=== PATIENT | female | born 2000 | race Hispanic/Latino ===

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

== ENCOUNTER 2018-07-21 18:23 | Emergency (ER) | payer OTHER, SELFPAY ==
--- OUTSIDE RECORDS SUMMARY | 2018-07-21 18:24 | XMS REPORT ---
:2000 [facility] Address [address] [place] [address] Dr. Amin. [address] [place] [id number] Care Team Providers Name Role Phone Unavailable Unavailable Unavailable Problems This patient has no known problems. Allergies, Adverse Reactions, Alerts This patient has no known allergies or adverse reactions. Medications This patient has no known medications.
[2018-07-21 19:26] LABS: Absolute Lymphocytes (CBC) 2.6 K/uL (0.7-4.9); Absolute Monocytes 0.6 K/uL (0.1-1.3); Absolute Neutrophil 6.7 K/uL (1.8-8.0); Basophils % 0.4 % (0-1.3); Hematocrit 40.7 % (36.0-45.0); Lymphocytes % 25.7 % (15.3-44.8); MPV 9.5 fL (7.6-11.3); Monocytes % 5.7 % (3.3-12.3); RBC Red Blood Cell Count 4.49 M/uL (3.86-4.86)
[2018-07-21 19:47] LABS: Urine Blood 2+ (NEG); Urine Glucose NEGATIVE (NEG); Urine Protein NEGATIVE (NEG); Urine Specific Gravity 1.025 (1.005-1.030)
[2018-07-21 20:22] LABS: BUN Blood Urea Nitrogen 14 mg/dL (7-18); Bicarbonate 26 mmol/L (21-32); Glucose Level 88 mg/dL (74-106); HCG, Quantitative 1341 mIU/mL (1-3); Potassium 3.7 mmol/L (3.5-5.1); Sodium Level 139 mmol/L (136-145)
--- NOTE | 2018-07-21 20:27 | ER ---
Nurse's Notes [facility] Name: Qi Thomas Age: 18 yrs Sex: Female : 2000 Arrival Date: 07/21/2018 Time: 18:26 Bed 23 Private MD: None, None Diagnosis: Threatened Presentation: 07/21 18:28 Presenting complaint: Patient states: "I've been bleeding for 3 or 4 days already and aj1 it comes and goes, sometimes its brown and sometimes its red." Patient reports that she is currently 7 weeks . Transition of care: patient was not received from another setting of care. Onset of symptoms was July 18, 2018. Risk Assessment: Do you want to hurt yourself or someone else? Patient reports no desire to harm self or others. Initial Sepsis Screen: Does the patient meet any 2 criteria? No. Patient's initial sepsis screen is negative. Does the patient have a suspected source of infection? No. Patient's initial sepsis screen is negative. Care prior to arrival: None. 18:28 Method Of Arrival: Ambulatory aj1 18:28 Acuity: ALBERT 3 aj1 Triage Assessment: 18:32 General: Appears in no apparent distress. uncomfortable, Behavior is calm, cooperative, aj1 appropriate for age. Pain: Complains of pain in suprapubic area. Neuro: Level of Consciousness is awake, alert, obeys commands, Oriented to person, place, time, situation. Cardiovascular: Patient's skin is warm and dry. Respiratory: Airway is patent Respiratory effort is even, unlabored, Respiratory pattern is regular, symmetrical. : Reports vaginal bleeding that is brown, light flow, spotty. 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 - Social history:: Smoking status: Patient/guardian denies using tobacco. - Ebola Screening: : Patient denies travel to an Ebola-affected area in the 21 days before illness onset. Screenin:40 Abuse screen: Denies threats or abuse. Denies injuries from another. Nutritional ca1 screening: No deficits noted. Tuberculosis screening: No symptoms or risk factors identified. Fall Risk Assessment: 18:40 General: Appears in no apparent distress. comfortable, Behavior is calm, cooperative, ca1 appropriate for age. Pain: Denies pain. Neuro: Level of Consciousness is awake, alert, obeys commands, Oriented to person, place, time, situation. Cardiovascular: Heart tones S1 S2 present Capillary refill < 3 seconds Patient's skin is warm and dry. Respiratory: Airway is patent Respiratory effort is even, unlabored, Respiratory pattern is regular, symmetrical, Breath sounds are clear bilaterally. GI: Abdomen is round non-distended, Bowel sounds present X 4 quads. Abd is soft and non tender X 4 quads. : Reports vaginal bleeding that is bright red, moderate flow, since 3 to 4 days ago. EENT: No deficits noted. No signs and/or symptoms were reported regarding the EENT system. Derm: Skin is intact, is healthy with good turgor, Skin is pink, warm \\T\\ dry. Musculoskeletal: Circulation, motion, and sensation intact. Capillary refill < 3 seconds, Range of motion: intact in all extremities. 19:00 Reassessment: Dr. Ridley at bedside and did Ultrasound of Abdomen. ca1 19:22 Reassessment: Patient appears in no apparent distress at this time. Patient is alert, ca1 oriented x 3, equal unlabored respirations, skin warm/dry/pink. Pt to Ultrasound. 20:20 Reassessment: Patient appears in no apparent distress at this time. Patient is alert, ca1 oriented x 3, equal unlabored respirations, skin warm/dry/pink. 20:41 Reassessment: Patient appears in no apparent distress at this time. No changes from aj previously documented assessment. Patient and/or family updated on plan of care and expected duration. Pain level reassessed. Patient is alert, oriented x 3, equal unlabored respirations, skin warm/dry/pink. Vital Signs: 18:32 BP 147 / 101; Pulse 86; Resp 18; Temp 97.1; Pulse Ox 96% on R/A; Weight 58.51 kg (R); aj1 Height 5 ft. 0 in. (152.40 cm) (R); Pain 0/10; 19:25 BP 129 / 75; Pulse 84; Resp 17 S; Pulse Ox 99% on R/A; ca1 20:18 BP 121 / 80; Pulse 79; Resp 18; Pulse Ox 100% on R/A; aj 18:32 Body Mass Index 25.19 (58.51 kg, 152.40 cm) aj1 ED Course: 18:26 Patient arrived in ED. mr 18:26 None, None is Private Physician. mr 18:32 Triage completed. aj1 18:32 Arm band placed on Patient placed in an exam room. aj1 18:35 Pancho Ridley MD is Attending Physician. ps1 18:36 Eidth Matias, RN is Primary Nurse. aj 18:40 Patient has correct armband on for positive identification. Placed in gown. Bed in low ca1 position. Call light in reach. Side rails up X 1. Pulse ox on. NIBP on. Warm blanket given. 18:59 Patient taken to ultrasound. elia 19:17 Initial lab(s) drawn, by me, sent to lab. Inserted saline lock: 20 gauge in right lt1 antecubital area, using aseptic technique. 19:50 Transvaginal OB US In Process Unspecified. EDMS 20:41 No provider procedures requiring assistance completed. IV discontinued, intact, aj bleeding controlled, No redness/swelling at site. Pressure dressing applied. Administered Medications: No medications were administered Outcome: 20:26 Discharge ordered by . ps1 20:41 Discharged to home ambulatory, with family. aj 20:41 Condition: good 20:41 Discharge instructions given to patient, family, Instructed on discharge instructions, follow up and referral plans. Demonstrated understanding of instructions, follow-up care. 20:42 Patient left the ED. aj Signatures: Dispatcher [employer] EDMS Tala Ryder, RN RN ajEdith Morales, RN LILLIAM Bailey Ricardo Santo Pancho Bro MD MD ps1 Claudia Hager RN RN ca1 Tran, Leah lt1
--- NOTE | 2018-07-21 20:27 | EDPHYS ---
Physician Documentation [facility] Name: Qi Thomas Age: 18 yrs Sex: Female : 2000 Arrival Date: 07/21/2018 Time: 18:26 Bed 23 Private MD: None, None ED Physician Pancho Ridley HPI: 07/21 18:56 This 18 yrs old Female presents to ER via Ambulatory with complaints of ps1 Vaginal Bleeding, + Preg <12wks. 18:56 no formal US. ? 6W5D by dates. reports 4 days of VB without passage of clots or ps1 tissue. Reports symptoms after intercourse. No pain. Reportes blood type as A POS. No urinary complaints. . 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 - Social history:: Smoking status: Patient/guardian denies using tobacco. - Ebola Screening: : Patient denies travel to an Ebola-affected area in the 21 days before illness onset. ROS: 18:56 Constitutional: Negative for fever, chills, and weight loss, Eyes: Negative for injury, ps1 pain, redness, and discharge, ENT: Negative for injury, pain, and discharge, Cardiovascular: Negative for chest pain, palpitations, and edema, Respiratory: Negative for shortness of breath, cough, wheezing, and pleuritic chest pain, Abdomen/GI: Negative for abdominal pain, nausea, vomiting, diarrhea, and constipation, MS/Extremity: Negative for injury and deformity, Skin: Negative for injury, rash, and discoloration, Neuro: Negative for headache, weakness, numbness, tingling, and seizure. 18:56 : Positive for vaginal bleeding. Exam: 18:56 Constitutional: This is a well developed, well nourished patient who is awake, alert, ps1 and in no acute distress. Head/Face: Normocephalic, atraumatic. Eyes: Pupils equal round and reactive to light, extra-ocular motions intact. Lids and lashes normal. Conjunctiva and sclera are non-icteric and not injected. Cardiovascular: Regular rate and rhythm. No gallops, murmurs, or rubs. Normal PMI, no JVD. No pulse deficits. Respiratory: Lungs have equal breath sounds bilaterally, clear to auscultation and percussion. No rales, rhonchi or wheezes noted. No increased work of breathing, no retractions or nasal flaring. Abdomen/GI: Soft, non-tender, with normal bowel sounds. No distension or tympany. No guarding or rebound. No evidence of tenderness throughout. Skin: Warm, dry with normal turgor. Normal color with no rashes, no lesions, and no evidence of cellulitis. MS/ Extremity: Pulses equal, no cyanosis. Neurovascular intact. Full, normal range of motion. Neuro: Awake and alert, GCS 15, oriented to person, place, time, and situation. Cranial nerves II-XII grossly intact. Sensory grossly intact. Psych: Awake, alert, with orientation to person, place and time. Behavior, mood, and affect are within normal limits. Vital Signs: 18:32 BP 147 / 101; Pulse 86; Resp 18; Temp 97.1; Pulse Ox 96% on R/A; Weight 58.51 kg (R); aj1 Height 5 ft. 0 in. (152.40 cm) (R); Pain 0/10; 19:25 BP 129 / 75; Pulse 84; Resp 17 S; Pulse Ox 99% on R/A; ca1 20:18 BP 121 / 80; Pulse 79; Resp 18; Pulse Ox 100% on R/A; aj 18:32 Body Mass Index 25.19 (58.51 kg, 152.40 cm) aj1 MDM: 18:56 Patient medically screened. ps1 20:27 Data reviewed: vital signs, nurses notes, lab test result(s), radiologic studies, ps1 ultrasound, and as a result, I will discharge patient. Counseling: I had a detailed discussion with the patient and/or guardian regarding: the historical points, exam findings, and any diagnostic results supporting the discharge/admit diagnosis, lab results, radiology results, the need for outpatient follow up, 48 hour repeat [facility] [place]. 07/21 18:56 Order name: Quantitative Hcg; Complete Time: 20:25 ps1 07/21 18:56 Order name: Abo/rh Typing; Complete Time: 20:25 [facility] 07/21 18:56 Order name: Basic Metabolic Panel; Complete Time: 20:25 [facility] 07/21 18:56 Order name: CBC with Diff; Complete Time: 19:39 [facility] 07/21 19:17 Order name: Urine Dipstick--Ancillary (enter results); Complete Time: 19:49 [facility] 07/21 19:17 Order name: Urine --Ancillary (enter results); Complete Time: 19:49 [facility] 07/21 18:56 Order name: IV Saline Lock; Complete Time: 19:13 ps1 07/21 18:56 Order name: Labs collected and sent; Complete Time: 19:13 [facility] 07/21 18:56 Order name: NPO; Complete Time: 19: [facility] 07/21 18:56 Order name: Urine Dipstick-Ancillary (obtain specimen); Complete Time: 19: [facility] 07/21 18:56 Order name: Transvaginal OB US ps1 Administered Medications: No medications were administered Disposition: 07/21/18 20:26 Discharged to Home. Impression: Threatened . - Condition is Stable. - Discharge Instructions: Threatened Miscarriage, Pelvic Rest. - School release form, Medication Reconciliation Form, Thank You Letter, Antibiotic Education, Prescription Opioid Use form. - Follow up: Private Physician; When: 2 - 3 days; Reason: Further diagnostic work-up, Recheck today's complaints, Continuance of care, Repeat Beta-HCG (48 Hours), Re-evaluation by your physician. Follow up: Emergency Department; When: As needed; Reason: Worsening of condition. - Problem is new. - Symptoms have improved. Signatures: Dispatcher [employer] Tala Bell RN RN aj1 Edith Matias RN RN aj Pancho Ridley MD MD ps1 Corrections: (The following items were deleted from the chart) 20:42 20:26 07/21/2018 20:26 Discharged to Home. Impression: Threatened . Condition aj is Stable. Forms are Medication Reconciliation Form, Thank You Letter, Antibiotic Education, Prescription Opioid Use. Follow up: Private Physician; When: 2 - 3 days; Reason: Further diagnostic work-up, Recheck today's complaints, Continuance of care, Repeat Beta-HCG (48 Hours), Re-evaluation by your physician. Follow up: Emergency Department; When: As needed; Reason: Worsening of condition. Problem is new. Symptoms have improved. ps1
--- NOTE | 2018-07-21 20:42 | RAD REPORT ---
EXAM DESCRIPTION: US - Transvaginal OB - 07/21/2018 7:50 pm CLINICAL HISTORY: , vaginal bleeding COMPARISON: None. FINDINGS: A slightly irregular intrauterine gestational sac identified with yolk sac. pole cou ld not be confirmed. Cardiac activity could not be confirmed. No hematoma or mass within the uterus. No blood or fluid in the cul de sac. No abnormality in the cervical canal. Both ovaries are identified and show normal blood flow within the stroma. No adnexal abnormality. Gestational sac measures 5 weeks 2 days in size. This would correspond to 03/21/2019 due date. IMPRESSION: Intrauterine gestational sac is present with pole could not be confirmed. Gestatio nal sac is 5 weeks 2 days in size. Findings may simply reflect a very early . Sonography can be performed serial hCG values ind icate ongoing . No adnexal abnormality. No suspicion for ectopic .
== END 2018-07-21 20:42 | disposition home or self-care (01) ==
LOC: ER 18:23
DX: O20.0 Threatened abortion (principal); Z3A.01 Less than 8 weeks gestation of pregnancy
CPT/HCPCS: 36415; 76817; 80048; 81003; 81025; 84702; 85025; 86900; 86901; 99284

== ENCOUNTER 2018-11-20 17:50 | Emergency (ER) | payer OTHER ==
--- OUTSIDE RECORDS SUMMARY | 2018-11-20 17:51 | XMS REPORT ---
:1998 Author Organization [facility] Address [address] [place] [address] Dr. [address] [place] [address] Care Team Providers Name Role Phone Unavailable Unavailable Unavailable Problems This patient has no known problems. Allergies, Adverse Reactions, Alerts This patient has no known allergies or adverse reactions. Medications This patient has no known medications.
--- OUTSIDE RECORDS SUMMARY | 2018-11-20 17:51 | XMS REPORT | Summary of Care ---
:1998 Author Organization [facility] Address [address] [place] [address] Care Team Providers Name Role Phone Gustavo Chen Insurance Hmo Dian George MD Primary Care Provider Reason for Visit Reason Comments ROUTINE VISIT f/u -ultrasound Encounter Details Date Type Department Care Team Description 10/06/2018 Routine [facility] Women[facility] Dian George MD Supervision of high-risk with history of in first trimester (Primary Dx); Visit Healthcare- [address] [place] [address] 7 weeks gestation of [address], [place] [address] [place] [phone] Allergies No Known Allergiesdocumented as of this encounter (statuses as of 10/07/2018) Medications Medication Sig Dispensed Refills Start Date End Date Status metroNIDAZOLE 500 mg Take 1 tablet by 14 tablet 0 09/16/2018 Active tabletIndications: BV mouth every 12 (bacterial vaginosis) (twelve) hours. vit Take by mouth. 0 Active calc,iron,folic ( VITAMIN ORAL) documented as of this encounter (statuses as of 10/07/2018) Active Problems Problem Noted Date Ectopic 07/27/2018 Rubella non-immune status, antepartum 07/14/2018 Overview: Address pp Abnormal maternal glucose tolerance, antepartum 07/07/2018 Overview: Passed 3hr gtt Tobacco use in 07/06/2018 Overview: Reports quit Supervision of high-risk 07/06/2018 History of anxiety 07/06/2018 Estimated Date of Delivery Comments Yes 05/21/2019 documented as of this encounter (statuses as of 10/07/2018) Resolved Problems Problem Noted Date Resolved Date Encounter for routine gynecological examination 10/22/2014 07/06/2018 Overview: ICD10 Diagnosis Term Template Clerk Utility BCP ( control pills) initiation 10/22/2014 10/22/2014 Routine screening for STI (sexually transmitted infection) 10/22/20142014 Screening for STD (sexually transmitted disease) 10/22/2014 07/06/2018 Initiation of Depo Provera 10/22/2014 07/06/2018 documented as of this encounter (statuses as of 10/07/2018) Social History Tobacco Use Types Packs/Day Years Used Date Former Smoker Cigarettes 0.1 07/07/2015 - 06/15/2018 Smokeless Tobacco: Never Used Comments: 2 ciggarettes a day Alcohol Use Drinks/Week oz/Week Comments No 0 Standard drinks or equivalent 0.0 Estimated Date of Delivery Comments Yes 05/21/2019 Sex Assigned at Date Recorded Not on file Job Start Date Occupation Industry Not on file Not on file Not on file Travel History Travel Start Travel End No recent travel history available. documented as of this encounter Last Filed Vital Signs Vital Sign Reading Time Taken Comments Blood Pressure 119/74 10/06/2018 4:08 PM CDT Pulse 81 10/06/2018 4:08 PM CDT Temperature 37.1 C (98.7 F) 10/06/2018 4:08 PM CDT Respiratory Rate 8 10/06/2018 4:08 PM CDT Oxygen Saturation - - Inhaled Oxygen Concentration - - Weight 58.1 kg (128 lb) 10/06/2018 4:08 PM CDT Height 152.4 cm (5') 10/06/2018 4:08 PM CDT Body Mass Index 25 10/06/2018 4:08 PM CDT documented in this encounter Progress Notes Dian George MD - 10/06/2018 4:15 PM CDT Chief complaint: Chief Complaint Patient presents with ROUTINE VISIT f/u -ultrasound HPI Qi Thomas is a 18 year old female @ 7w5d by LMP here for USG for viability.NO issues today. Histories OB History Para Term AB Living 2 0 0 0 1 0 SAB TAB Ectopic Multiple Live Births 1 0 0 0 # Outcome Date GA Lbr Dhiraj/2nd Weight Sex Delivery Anes PTL Lv 2 Current 1 SAB 07/28/18 7w5d Past Medical History: Diagnosis Date Abnormal maternal glucose tolerance, antepartum 07/07/2018 Anxiety 2017 current, not on meds, was taking zoloft Family History Problem Relation Age of Onset Hypertension Mother High cholesterol Mother Other - see comments Sister enlarged liver Asthma Paternal Grandmother Diabetes Paternal Grandmother Asthma Sister No Significant Medical Problems Father No Significant Medical Problems Maternal Aunt No Significant Medical Problems Maternal Uncle No Significant Medical Problems Paternal Aunt No Significant Medical Problems Paternal Uncle Arthritis NoFHx defects NoFHx Breast Cancer NoFHx Colon Cancer NoFHx Ovarian Cancer NoFHx Uterine Cancer NoFHx Cancer NoFHx Depression NoFHx Genetic NoFHx Heart NoFHx Mental retardation NoFHx Neurological NoFHx Osteoporosis NoFHx Psychiatry NoFHx Family Status Relation Name Status Mo Alive Sis Alive PGMo Alive Sis Alive Fa Alive MAunt Alive MUnc Alive PAunt Alive PUnc Alive NoFHx (Not Specified) Past Surgical History: Procedure Laterality Date MANDIBLE RESECTION Social History Socioeconomic History Marital status: Single Spouse name: Not on file Number of children: Not on file Years of education: Not on file Highest education level: Not on file Occupational History Not on file Social Needs Financial resource strain: Not on file Food insecurity: Worry: Not on file Inability: Not on file Transportation needs: Medical: Not on file Non-medical: Not on file Tobacco Use Smoking status: Former Smoker Packs/day: 0.10 Types: Cigarettes Start date: 07/07/2015 Last attempt to quit: 06/15/2018 Years since quittin.3 Smokeless tobacco: Never Used Tobacco comment: 2 ciggarettes a day Substance and Sexual Activity Alcohol use: No Alcohol/week: 0.0 oz Drug use: No Sexual activity: Yes Partners: Male Comment: last intercourse 09/08/2018 Lifestyle Physical activity: Days per week: Not on file Minutes per session: Not on file Stress: Not on file Relationships Social connections: Talks on phone: Not on file Gets together: Not on file Attends jehovah's witness service: Not on file Active member of club or organization: Not on file Attends meetings of clubs or organizations: Not on file Relationship status: Not on file Intimate partner violence: Fear of current or ex partner: Not on file Emotionally abused: Not on file Physically abused: Not on file Forced sexual activity: Not on file Other Topics Concern Not on file Social History Narrative Patient lives with sister, friend, and brother. Patient has 2 dogs. Patient feels safe at home. Social History Substance and Sexual Activity Sexual Activity Yes Partners: Male Comment: last intercourse 09/08/2018 Labs No new labs Radiology No new radiology. Allergies Qi has No Known Allergies. Medications Qi has a current medication list which includes the following prescription(s ): vit calc,iron,folic and metronidazole. Review of Systems Constitutional: Negative for chills, fatigue and fever. HENT: Negative for congestion, rhinorrhea, sneezing and sore throat. Eyes: Negative for photophobia and visual disturbance. Respiratory: Negative for cough, chest tightness, shortness of breath and wheezing. Cardiovascular: Negative for chest pain and palpitations. Gastrointestinal: Negative for abdominal distention, abdominal pain, constipation, diarrhea, nausea and vomiting. Genitourinary: Negative for dysuria, urgency, frequency, vaginal bleeding and vaginal discharge. Skin: Negative for rash. Neurological: Negative for syncope and headaches. Hematological: Does not bruise/bleed easily. BP 119/74 (BP Location: Left arm, Patient Position: Sitting, BP CUFF SIZE: Adult Medium) | Pulse 81 | Temp 37.1 C (98.7 F) (Oral) | Resp 8 | Ht 5' ( 1.524 m) | Wt 128 lb (58.1 kg) | LMP 08/14/2018 | HC 1" (2.5 cm) | BMI 25.00 kg/m Pregravid BMI: 26.0 Physical Exam Vitals reviewed. Constitutional: She is oriented to person, place, and time. She appears well- developed and well-nourished. Cardiovascular: Regular rate and rhythm. Pulmonary/Chest: Normal inspiratory effort. Abdominal: Abdomen is soft. No tenderness present. No hernia palpated or inspected. Neuro/Psychiatric: She has a normal mood and affect. She is oriented to person, place, and time. Skin: Skin normal. No rash present. Assessment/Plan See OB Summary Return to clinic in 4 weeks. Reviewed patient instructions and provided printed copy. Activity restrictions: As tolerated at 7w5d This visit did not involve counseling and coordination that comprised more than 50% of the visit time. Dian George MD 10/07/2018 9:08 AM documented in this encounter Plan of Treatment Date Type Specialty Care Team Description 11/03/2018 Routine Obstetrics & Dian George MD Visit Gynecology [address] [place] [address] [address]. [address] [place] [address] [phone] 04/28/2019 Office Visit Obstetrics & Dian George MD Gynecology [address] [place] [address] [address]. [address] [place] [address] [phone] Health Maintenance Due Date Last Done Comments MENINGOCOCCAL B VACCINES (1 of 2008 2 - Risk Bexsero 2-dose series) HPV VACCINES (1 - Female 2013 3-dose series) DTaP,Tdap,and Td Vaccines (1 - 2017 Tdap) INFLUENZA VACCINE 11/08/2018 CHLAMYDIA SCREENING 09/16/2019 09/15/2018, 07/06/2018, 10/21/2014 MENINGOCOCCAL VACCINE Aged Out No longer eligible based on patient's age to complete this topic PNEUMOCOCCAL 0-64 YEARS Aged Out No longer eligible based COMBINED SERIES on patient's age to complete this topic documented as of this encounter Procedures Procedure Name Priority Date/Time Associated Diagnosis Comments <14 WEEKS US Routine 10/06/2018 4:51 PM Supervision of Results for this LIMITED CDT high-risk procedure are in with history of the results in first section. trimester 7 weeks gestation of documented in this encounter Results <14 WEEKS US LIMITED (10/06/2018 4:51 PM CDT) Specimen Narrative Performed At Limited USG for viability:Single live IUP measured 8 1/7 weeks, PACS consistent with LMP.Will date by LMP Dian George MD10/07/20189:09 AM Performing Organization Address City/State/Zipcode Phone Number PACS documented in this encounter Visit Diagnoses Diagnosis Supervision of high-risk with history of in first trimester - Primary 7 weeks gestation of documented in this encounter Insurance Payer Benefit Plan / Subscriber ID Effective Phone Address Type Group Dates [facility] xxxxxxxxx 2018-Arminda YANG Medicaid HEALTH CHOICE - [place] [id number] MANAGED MEDICAID [place], [place] MEDICAID [phone] documented as of this encounter Advance Directives Name Relationship Healthcare Agent Communication Relationship Moncho Monroy Significant Other First [facility] healthcare [phone] agent (Mobile)
--- OUTSIDE RECORDS SUMMARY | 2018-11-20 17:52 | XMS REPORT | Summary of Care ---
:1998 Author Organization [facility] - [facility] Address [address] [place] [address] Care Team Providers Name Role Phone Gustavo Chen Insurance Hmo Dian George MD Primary Care Provider Encounter Details Date Type Department Care Team Description 10/06/2018 Orders Only [facility] Doctor Unassigned, No [address] [facility] [place] [address] [address] [place] [phone] Allergies No Known Allergiesdocumented as of this encounter (statuses as of 10/29/2018) Medications Medication Sig Dispensed Refills Start Date End Date Status metroNIDAZOLE 500 mg Take 1 tablet by 14 tablet 0 09/16/2018 Active tabletIndications: BV mouth every 12 (bacterial vaginosis) (twelve) hours. vit Take by mouth. 0 Active calc,iron,folic ( VITAMIN ORAL) documented as of this encounter (statuses as of 10/29/2018) Active Problems Problem Noted Date Ectopic 07/27/2018 Rubella non-immune status, antepartum 07/14/2018 Overview: Address pp Abnormal maternal glucose tolerance, antepartum 07/07/2018 Overview: Passed 3hr gtt Tobacco use in 07/06/2018 Overview: Reports quit Supervision of high-risk 07/06/2018 History of anxiety 07/06/2018 Estimated Date of Delivery Comments Yes 05/21/2019 documented as of this encounter (statuses as of 10/29/2018) Resolved Problems Problem Noted Date Resolved Date Encounter for routine gynecological examination 10/22/2014 07/06/2018 Overview: ICD10 Diagnosis Term Ginseng Farmer Utility BCP ( control pills) initiation 10/22/2014 10/22/2014 Routine screening for STI (sexually transmitted infection) 10/22/20142014 Screening for STD (sexually transmitted disease) 10/22/2014 07/06/2018 Initiation of Depo Provera 10/22/2014 07/06/2018 documented as of this encounter (statuses as of 10/29/2018) Social History Tobacco Use Types Packs/Day Years [...] of this encounter Last Filed Vital Signs Not on filedocumented in this encounter Plan of Treatment Date Type Specialty Care Team Description 11/03/2018 Routine Obstetrics & Dian George MD Visit Gynecology [address] [place] [address] [address]. [address] [place] [address] [phone] 04/28/2019 Office Visit Obstetrics & Dian George MD Gynecology [address] [place] [address] [address]. [address] [place] [address] Health Maintenance Due Date Last Done Comments MENINGOCOCCAL B VACCINES (1 of 2008 2 - Risk Bexsero 2-dose series) HPV VACCINES (1 - Female 2013 3-dose series) DTaP,Tdap,and Td Vaccines (1 - 2017 Tdap) INFLUENZA VACCINE (#1) 2018 CHLAMYDIA SCREENING 09/16/2019 09/15/2018, 07/06/2018, 10/21/2014 MENINGOCOCCAL VACCINE Aged Out No longer eligible based on patient's age to complete this topic PNEUMOCOCCAL 0-64 YEARS Aged Out No longer eligible based COMBINED SERIES on patient's age to complete this topic documented as of this encounter Procedures Procedure Name Priority Date/Time Associated Diagnosis Comments [facility] ULTRASOUND Routine 10/06/2018 12:01 AM CDT documented in this encounter Results Not on filedocumented in this encounter Insurance Payer Benefit Plan / Subscriber ID Effective Phone Address Type Group [facility] xxxxxxxxx 2018-Arminda YANG Medicaid [place] [facility] [id number] MANAGED MEDICAID [place], [place] [phone] documented as of this encounter Advance Directives Name Relationship Healthcare Agent Communication Relationship Moncho Monroy Significant Other [facility] [phone] agent (Mobile)
--- OUTSIDE RECORDS SUMMARY | 2018-11-20 17:52 | XMS REPORT | Summary of Care ---
:1998 Author Organization [facility] Address [address] [place] [address] Care Team Providers Name Role Phone Gustavo Chen Insurance Hmo Dian George MD Primary Care Provider Reason for Visit Reason Comments Lab Results Encounter Details Date Type Department Care Team Description 11/10/2018 Case Management [facility] Women[facility] Dian George MD Lab Results Healthcare- [address] [facility], [place] [address] [address] [place], [place] [address] [place] [phone] Allergies No Known Allergiesdocumented as of this encounter (statuses as of 11/10/2018) Medications Medication Sig Dispensed Refills Start Date End Date Status vit Take by mouth. 0 Active calc,iron,folic ( VITAMIN ORAL) documented as of this encounter (statuses as of 11/10/2018) Active Problems Problem Noted Date Ectopic 07/27/2018 Rubella non-immune status, antepartum 07/14/2018 Overview: Address pp Abnormal maternal glucose tolerance, antepartum 07/07/2018 Overview: Passed 3hr gtt Tobacco use in 07/06/2018 Overview: Reports quit Supervision of high-risk 07/06/2018 History of anxiety 07/06/2018 Estimated Date of Delivery Comments Yes 05/21/2019 documented as of this encounter (statuses as of 11/10/2018) Resolved Problems Problem Noted Date Resolved Date Encounter for routine gynecological examination 10/22/2014 07/06/2018 Overview: ICD10 Diagnosis Term Guitar Instructor Utility BCP ( control pills) initiation 10/22/2014 10/22/2014 Routine screening for STI (sexually transmitted infection) 10/22/20142014 Screening for STD (sexually transmitted disease) 10/22/2014 07/06/2018 Initiation of Depo Provera 10/22/2014 07/06/2018 documented as of this encounter (statuses as of 11/10/2018) Social History Tobacco Use Types Packs/Day Years [...] Treatment Date Type Specialty Care Team Description 11/30/2018 Routine Obstetrics & Sherry Montalvo, Visit Gynecology [facility] [address] [place] [phone] Health Maintenance Due Date Last Done Comments [...] this topic documented as of this encounter Results Not on filedocumented in this encounter Insurance Payer Benefit Plan / Subscriber ID Effective Phone Address Type Group [facility] xxxxxxxxx 2018-[address]se [address] Medicaid HEALTH CHOICE - HEALTH CHOICE [id number] [facility] MEDICAID [place], [place] MEDICAID [phone] documented as of this encounter Advance Directives Name Relationship Healthcare Agent Communication Relationship Moncho Monroy Significant Other [facility] [phone] agent (Mobile)
--- OUTSIDE RECORDS SUMMARY | 2018-11-20 17:52 | XMS REPORT | Summary of Care ---
:1998 Author Organization [facility] Address [address] [place] [address] Care Team Providers Name Role Phone Gustavo Chen Insurance Hmo Dian George MD Primary Care Provider Reason for Visit Reason Comments ROUTINE VISIT Encounter Details Date Type Department Care Team Description 11/02/2018 Routine [facility] Women's Dian George MD Supervision of high-risk with history of in first trimester (Primary Dx); Visit Healthcare- [address] [place] [address] 11 weeks gestation of [place] [address] [address] [place] [phone] Allergies No Known Allergiesdocumented as of this encounter (statuses as of 11/02/2018) Medications Medication Sig Dispensed Refills Start Date End Date Status vit Take by 0 Active calc,iron,folic mouth. ( VITAMIN ORAL) metroNIDAZOLE 500 mg Take 1 tablet 14 tablet 0 09/16/2018 11/02/2018 Discontinued tabletIndications: by mouth BV (bacterial every 12 vaginosis) (twelve) hours. documented as of this encounter (statuses as of 11/02/2018) Active Problems Problem Noted Date Ectopic 07/27/2018 Rubella non-immune status, antepartum 07/14/2018 Overview: Address pp Abnormal maternal glucose tolerance, antepartum 07/07/2018 Overview: Passed 3hr gtt Tobacco use in 07/06/2018 Overview: Reports quit Supervision of high-risk 07/06/2018 History of anxiety 07/06/2018 Estimated Date of Delivery Comments Yes 05/21/2019 documented as of this encounter (statuses as of 11/02/2018) Resolved Problems Problem Noted Date Resolved Date Encounter for routine gynecological examination 10/22/2014 07/06/2018 Overview: ICD10 Diagnosis Term Fleet Technician Utility BCP ( control pills) initiation 10/22/2014 10/22/2014 Routine screening for STI (sexually transmitted infection) 10/22/20142014 Screening for STD (sexually transmitted disease) 10/22/2014 07/06/2018 Initiation of Depo Provera 10/22/2014 07/06/2018 documented as of this encounter (statuses as of 11/02/2018) Social History Tobacco Use Types Packs/Day Years [...] Sign Reading Time Taken Comments Blood Pressure 113/64 11/02/2018 1:22 PM CDT Pulse 76 11/02/2018 1:22 PM CDT Temperature 36.7 C (98.1 F) 11/02/2018 1:22 PM CDT Respiratory Rate 20 11/02/2018 1:22 PM CDT Oxygen Saturation - - Inhaled Oxygen Concentration - - Weight 57.2 kg (126 lb 3.2 oz) 11/02/2018 1:22 PM CDT Height 152.4 cm (5') 11/02/2018 1:22 PM CDT Body Mass Index 24.65 11/02/2018 1:22 PM CDT documented in this encounter Progress Notes Dian George MD - 11/02/2018 1:30 PM CDT Chief complaint: Chief Complaint Patient presents with ROUTINE VISIT HPI Denies vaginal bleeding or cramping. Histories OB History Para Term AB Living [...] file Gets together: Not on file Attends spiritism service: Not on file Active member of [...] which includes the following prescription(s ): vit calc,iron,folic. Review of Systems Constitutional: Negative for chills, [...] headaches. Hematological: Does not bruise/bleed easily. BP 113/64 (BP Location: Left arm, Patient Position: Sitting, BP CUFF SIZE: Adult Medium) | Pulse 76 | Temp 36.7 C (98.1 F) (Oral) | Resp 20 | Ht 5' (1.524 m) | Wt 126 lb 3.2 oz (57.2 kg) | LMP 08/14/2018 | BMI 24.65 kg/m Pregravid BMI: 26.0 Physical Exam Vitals reviewed. Constitutional: She is oriented to person, place, and time. Her body habitus is normal. Cardiovascular: Regular rate and rhythm. Pulmonary/Chest: Normal [...] printed copy. Activity restrictions: As tolerated at 11w3d This visit did not involve counseling and coordination that comprised more than 50% of the visit time. Dian George MD 11/02/2018 1:40 PM documented in this encounter Plan of Treatment Date Type Specialty Care Team Description 04/28/2019 Office Visit Obstetrics & Gynecology Dian George MD [address] [place] [address] [place] [address] [phone] Health Maintenance Due Date Last Done Comments [...] Results Not on filedocumented in this encounter Visit Diagnoses Diagnosis Supervision of high-risk with history of in first trimester - Primary 11 weeks gestation of state, incidental documented in this encounter Insurance Payer Benefit Plan / Subscriber ID Effective Phone Address Type Group [facility] xxxxxxxxx 2018-Arminda YANG Medicaid HEALTH CHOICE - HEALTH CHOICE [id number] MANAGED MEDICAID [place], [place] [phone] documented as of this encounter Advance Directives Name Relationship Healthcare Agent Communication Relationship Moncho Monroy Significant Other [facility] [employer] [facility] [phone] agent (Mobile) "
--- OUTSIDE RECORDS SUMMARY | 2018-11-20 17:52 | XMS REPORT | Summary of Care ---
:1998 Author Organization [facility] Address [address] [place] [address] Care Team Providers Name Role Phone Gustavo Chen Insurance Hmo Dian George MD Primary Care Provider Reason for Visit Reason Comments ROUTINE VISIT Encounter Details Date Type Department Care Team Description 11/02/2018 Routine [facility] Women's Dian George MD Supervision of high-risk with history of in first trimester (Primary Dx); Visit Healthcare- [address] [place] [address] 11 weeks gestation of [place] [address] [address] [place] [phone] Allergies No Known Allergiesdocumented as of this [...] examination 10/22/2014 07/06/2018 Overview: ICD10 Diagnosis Term Supervisor Lump Room Utility BCP ( control pills) initiation 10/22/2014 [...] file Gets together: Not on file Attends shinto service: Not on file Active member of [...] Obstetrics & Sherry Montalvo, Visit Gynecology [facility] [address] [phone] Health Maintenance Due Date Last Done [...] Subscriber ID Effective Phone Address Type Group [facility] xxxxxxxxx 2018-Arminda YANG Medicaid HEALTH CHOICE [place] [id number] MANAGED MEDICAID [place], [place] [phone] documented as of this encounter Advance Directives Name Relationship Healthcare Agent Communication Relationship Moncho Monroy Significant Other [facility] [employer] [phone] agent (Mobile) "
--- OUTSIDE RECORDS SUMMARY | 2018-11-20 17:52 | XMS REPORT | Summary of Care ---
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 BCP ( control pills) initiation 10/22/2014 [...] Treatment Date Type Specialty Care Team Description 11/02/2018 Life Insurance Specialist Visit Clinical Medical George, Dian Pagan MD [address] [place] [address] [phone] Arrived Laboratory 1, Adc Lab 11/30/2018 Routine Visit Obstetrics & Sherry Montalvo, Gynecology PA-C [address] [place] [address] [phone] Health Maintenance Due Date Last Done Comments [...] Procedure Name Priority Date/Time Associated Diagnosis Comments ASSIGNMENT OF BENEFITS Routine 11/02/2018 2:18 PM CDT documented in this encounter Results Not on filedocumented in this encounter Insurance Payer Benefit Plan / Subscriber ID Effective Phone Address Type Group [facility] xxxxxxxxx 2018-Arminda YANG Medicaid HEALTH CHOICE - [place] [id number] [facility] MEDICAID [place], [place] [id number] documented as of this encounter Advance Directives Name Relationship Healthcare Agent Communication Relationship Moncho Monroy Significant Other [employer] alternate healthcare [phone] agent (Mobile)
--- OUTSIDE RECORDS SUMMARY | 2018-11-20 17:52 | XMS REPORT | Summary of Care ---
:2000 Author Organization [facility] Address [address] [place] [id number] Care Team Providers Name Role Phone Gustavo Chen Insurance Hmo Dian George MD Primary Care Provider Reason for Visit Reason Comments ROUTINE VISIT Encounter Details Date Type Department Care Team Description 11/02/2018 Routine [facility] Women's Dian George MD Supervision of high-risk with history of in first trimester (Primary Dx); Visit Healthcare- [address] [place] [address] 11 weeks gestation of [place] [address] [address] [place] [phone] Allergies No Known Allergiesdocumented as of this [...] examination 10/22/2014 07/06/2018 Overview: ICD10 Diagnosis 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 [address] [phone] Health Maintenance Due Date Last Done Comments [...] Subscriber ID Effective Phone Address Type Group [facility] xxxxxxxxx 2018-Arminda YANG Medicaid HEALTH CHOICE - HEALTH CHOICE [id number] MANAGED MEDICAID [place], [place] [phone] documented as of this encounter Advance Directives Name Relationship Healthcare Agent Communication Relationship Moncho Monroy Significant Other [employer] [phone] agent (Mobile) "
--- NOTE | 2018-11-20 19:52 | EDPHYS ---
[facility] Name: Qi Thomas Age: 18 yrs Sex: Female : 2000 Arrival Date: 11/20/2018 Time: 17:53 Bed 16 Private MD: ED Physician Brad Hernandez HPI: 11/20 18:41 This 18 yrs old Female presents to ER via Ambulatory with complaints of Flu jmm Symptoms. 18:41 The patient or guardian reports cough. Onset: The symptoms/episode began/occurred jmm gradually, 2 day(s) ago. Modifying factors: The symptoms are alleviated by nothing. the symptoms are aggravated by nothing. Associated signs and symptoms: Pertinent positives: earache, rhinorrhea, sore throat. This is a 18 year old female currently 14 weeks since LMP that presents to the ED with complaints of cough, congestion, sore throat beginning 2 days. . 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 - Social history:: Smoking status: Patient/guardian denies using tobacco. - Ebola Screening: : No symptoms or risks identified at this time. ROS: 18:41 Cardiovascular: Negative for chest pain, palpitations, and edema. jmm 18:41 Abdomen/GI: Negative for abdominal pain, nausea, vomiting, diarrhea, and constipation, Back: Negative for injury and pain. 18:41 Constitutional: Positive for malaise, Negative for fever. 18:41 ENT: Positive for ear pain, sinus congestion. 18:41 Respiratory: Positive for cough. 18:41 Neuro: Positive for headache. 18:41 All other systems are negative. Exam: 18:41 Constitutional: This is a well developed, well nourished patient who is awake, alert, jmm and in no acute distress. Head/Face: atraumatic. Eyes: EOMI, no conjunctival erythema appreciated ENT: Moist Mucus Membranes Neck: Trachea midline, Supple Chest/axilla: Normal chest wall appearance and motion. Cardiovascular: Regular rate and rhythm. No edema appreciated Respiratory: Normal respirations, no respiratory distress appreciated Abdomen/GI: Non distended, soft 18:41 Skin: General appearance color normal MS/ Extremity: Moves all extremities, no obvious deformities appreciated, no edema noted to the lower extremities Neuro: Awake and alert, normal gait Psych: Behavior is normal, Mood is normal, Patient is cooperative and pleasant 18:41 ENT: TM's: are normal, Posterior pharynx: erythema, that is mild. Vital Signs: 18:02 BP 125 / 70; Pulse 108; Resp 16; Temp 97.8; Pulse Ox 100% on R/A; Weight 58.51 kg; hb Height 5 ft. (152.40 cm); Pain 0/10; 20:07 BP 121 / 66; Pulse 82; Resp 16; Pulse Ox 100% on R/A; jb4 18:02 Body Mass Index 25.19 (58.51 kg, 152.40 cm) hb MDM: 18:41 Patient medically screened. [facility] 19:51 Data reviewed: vital signs, nurses notes. Counseling: I had a detailed discussion with [facility] the patient and/or guardian regarding: the historical points, exam findings, and any diagnostic results supporting the discharge/admit diagnosis, the need for outpatient follow up, to return to the emergency department if symptoms worsen or persist or if there are any questions or concerns that arise at home. ED course: Patient is alert and non toxic in appearance in the ED. Patient advised to follow up with ob and otherwise given strict return precautions. patient understood and agrees with the plan of care. . 11/20 18:42 Order name: Flu; Complete Time: 19:33 [facility] 11/20 18:42 Order name: Strep; Complete Time: 19:33 [facility] 11/20 19:31 Order name: Throat Culture EDMS Administered Medications: No medications were administered Disposition: 11/20/18 19:52 Discharged to Home. Impression: Acute upper respiratory infection, unspecified. - Condition is Stable. - Discharge Instructions: Upper Respiratory Infection, Adult. - Medication Reconciliation Form, Thank You Letter, Antibiotic Education, Prescription Opioid Use form. - Follow up: Private Physician; When: 2 - 3 days; Reason: Recheck today's complaints, Continuance of care, Re-evaluation by your physician. Addendum: 11/21/2018 20:56 Co-signature as Attending Physician, Brad Hernandez MD. r n Signatures: Dispatcher [employer] EDMS Lan Mcgarry PA PA jmm Nieto, Roman, MD MD rn Baxter, Heather, RN RN hb Bryson, James, RN RN jb4 Corrections: (The following items were deleted from the chart) 11/20 20:08 19:52 11/20/2018 19:52 Discharged to Home. Impression: Acute upper respiratory jb4 infection, unspecified. Condition is Stable. Forms are Medication Reconciliation Form, Thank You Letter, Antibiotic Education, Prescription Opioid Use. Follow up: Private Physician; When: 2 - 3 days; Reason: Recheck today's complaints, Continuance of care, Re-evaluation by your physician. anaid
--- NOTE | 2018-11-20 19:52 | ER ---
Nurse's Notes [facility] Name: Qi Thomas Age: 18 yrs Sex: Female : 2000 Arrival Date: 11/20/2018 Time: 17:53 Bed 16 Private MD: Diagnosis: Acute upper respiratory infection, unspecified Presentation: 11/20 18:00 Presenting complaint: Sinus congestion, sore throat, sneezing, nausea, nonproductive hb cough, headache, popping sensation in both ears x 2 days. Pt is 14 weeks , FRANNY 05/21. Transition of care: patient was not received from another setting of care. Onset of symptoms was November 19, 2018. Risk Assessment: Do you want to hurt yourself or someone else? Patient reports no desire to harm self or others. Initial Sepsis Screen: Does the patient meet any 2 criteria? No. Patient's initial sepsis screen is negative. Does the patient have a suspected source of infection? No. Patient's initial sepsis screen is negative. Care prior to arrival: None. 18:00 Method Of Arrival: Ambulatory hb 18:00 Acuity: ALBERT 4 hb RISK SPECIALIST: 18:02 LMP 08/2018 hb Historical: - Allergies: 18:02 No Known Allergies; hb - Home Meds: 18:02 Vitamin Oral [Active]; hb - PMHx: 18:02 None; hb - PSHx: 18:02 None; hb - Immunization history:: Adult Immunizations up to date. - Social history:: Smoking status: Patient/guardian denies using tobacco. - Ebola Screening: : No symptoms or risks identified at this time. Screenin:15 Abuse screen: Denies threats or abuse. Nutritional screening: No deficits noted. jb4 Tuberculosis screening: No symptoms or risk factors identified. Fall Risk None identified. Assessment: 19:15 General: Appears in no apparent distress. comfortable, Behavior is calm, cooperative, jb4 appropriate for age. Pain: Denies pain. Neuro: Level of Consciousness is awake, alert, obeys commands, Oriented to person, place, time, situation. Cardiovascular: Patient's skin is warm and dry. Respiratory: Airway is patent Respiratory effort is even, unlabored, Respiratory pattern is regular, symmetrical. GI: No deficits noted. No signs and/or symptoms were reported involving the gastrointestinal system. : No deficits noted. No signs and/or symptoms were reported regarding the genitourinary system. EENT: No deficits noted. No signs and/or symptoms were reported regarding the EENT system. Derm: Skin is intact, Skin is pink, warm \T\ dry. Musculoskeletal: Circulation, motion, and sensation intact. Range of motion: intact in all extremities. 20:00 Reassessment: Patient appears in no apparent distress at this time. Patient and/or jb4 family updated on plan of care and expected duration. Pain level reassessed. Patient is alert, oriented x 3, equal unlabored respirations, skin warm/dry/pink. Vital Signs: 18:02 BP 125 / 70; Pulse 108; Resp 16; Temp 97.8; Pulse Ox 100% on R/A; Weight 58.51 kg; hb Height 5 ft. (152.40 cm); Pain 0/10; 20:07 BP 121 / 66; Pulse 82; Resp 16; Pulse Ox 100% on R/A; jb4 18:02 Body Mass Index 25.19 (58.51 kg, 152.40 cm) ED Course: 17:53 Patient arrived in ED. rg4 18:01 Triage completed. 18:02 Arm band placed on. hb 18:03 Masoud Peralta RN is Primary Nurse. jlSaniya 18:33 Lan Mcgarry PA is PHCP. [facility] 18:33 Brad Hernandez MD is Attending Physician. [facility] 19:15 Patient has correct armband on for positive identification. Bed in low position. Call jb4 light in reach. Side rails up X 1. Pulse ox on. NIBP on. 20:00 No provider procedures requiring assistance completed. Patient did not have IV access jb4 during this emergency room visit. 20:07 Primary Nurse role handed off by Masoud Peralta RN jb4 20:07 Sunny Flores, RN is Primary Nurse. jb4 Administered Medications: No medications were administered Outcome: 19:52 Discharge ordered by . brigette 20:07 Discharged to home ambulatory, with family. jb4 20:07 Condition: stable 20:07 Discharge instructions given to patient, family, Instructed on discharge instructions, follow up and referral plans. Demonstrated understanding of instructions, follow-up care. 20:08 Patient left the ED. jb4 Signatures: Lan Mcgarry PA PA jmm Baxter, Heather, RN RN hb Ermelinda Carbone rg4 Sunny Flores, RN RN jb4 Masoud Peralta RN RN jl7
[2018-11-20 21:09] VITALS: TEMP 97.8; O2SAT 100
[2018-11-20 21:10] VITALS: BP 121/66
== END 2018-11-20 20:08 | disposition home or self-care (01) ==
LOC: ER 17:50
DX: O26.891 Other specified pregnancy related conditions, first trimester (principal); Z3A.14 14 weeks gestation of pregnancy
CPT/HCPCS: 87070; 87081; 87804; 99283

== ENCOUNTER 2020-05-14 11:55 | Emergency (ER) | payer OTHER ==
--- OUTSIDE RECORDS SUMMARY | 2020-05-14 11:58 | XMS REPORT | Continuity of Care Document ---
:2000 Author Organization [facility] t Address [address] [place] [address] [address]. [address] [place] [address] Care Team Providers Name Role Phone Ej George MD Attending Clinician Tori Vogel Attending Clinician Doctor Unassigned, Name Attending Clinician Unavailable Selvin TINEO Attending Clinician Problems This patient has no known problems. Allergies, Adverse Reactions, Alerts This patient has no known allergies or adverse reactions. Medications This patient has no known medications. Procedures This patient has no known procedures. Encounters Start End Encounter Admission Attending Care Care Encounter Source Date/Time Date/Time Type Type Clinicians Facility Department ID 2020-04-05 2020-04-05 Telephone Dian George [id number] 00:00:00 00:00:00 Ej Hartland [id number] [place] [id number] Professio [phone] [address] 2020-04-03 2020-04-03 Initial CASE Lechuga [id number] 13:11:15 14:13:31 Yuli Valle MARKET SURVEY REPRESENTATIVE [id number] Visit [facility] [id number] MATERNAL [phone] & CHILD [address] [place] [address] 2020-04-03 2020-04-03 Orders Doctor OBDULIA [id number] 00:00:00 00:00:00 Only Unassigned, GWENDOLYN [id number] [place] [facility] [id number] 2019-12-06 2019-12-06 Office CASE Montalvo [id number] 10:12:30 11:48:09 Visit Sherry Malave [id number] [place] [id number] [facility] [phone] [facility] 134 [facility] Results This patient has no known results.
[2020-05-14 13:52] LABS: Urine Blood NEGATIVE (NEG); Urine Glucose NEGATIVE (NEG); Urine Protein 1+ (NEG); Urine Specific Gravity 1.025 (1.005-1.030); Urine pH 5.5 (5.0-7.0)
[2020-05-14 14:09] LABS: Absolute Lymphocytes (CBC) 1.1 K/uL (0.7-4.9); Basophils % 0.3 % (0-1.3); Hematocrit 38.9 % (36.0-45.0); Lymphocytes % 10.8 % (15.3-44.8); MPV 9.7 fL (7.6-11.3); RBC Red Blood Cell Count 4.47 M/uL (3.86-4.86)
[2020-05-14 14:26] LABS: ALT/SGPT 39 U/L (12-78); AST/SGOT 25 U/L (15-37); Albumin 3.3 g/dL (3.4-5.0); Alkaline Phosphatase 78 U/L (45-117); BUN Blood Urea Nitrogen 10 mg/dL (7-18); Bicarbonate 23 mmol/L (21-32); Bilirubin Direct < 0.1 mg/dL (0-0.2); Bilirubin Total 0.3 mg/dL (0.2-1.0); Glucose Level 84 mg/dL (74-106); Lipase 95 U/L (73-393); Potassium 3.8 mmol/L (3.5-5.1); Protein, Total 7.8 g/dL (6.4-8.2); Sodium Level 137 mmol/L (136-145)
[2020-05-14] MEDS ORDERED: FAMOTIDINE 20 MG/2 ML VIAL IV ONE (14:33)
[2020-05-14] MEDS ORDERED: NA CHLORIDE 0.9% 1,000 ML ONE (14:33)
--- NOTE | 2020-05-14 14:50 | ER ---
Nurse's Notes [facility] Name: Qi Thomas Age: 20 yrs Sex: Female : 2000 Arrival Date: 05/14/2020 Time: 11:58 Bed 23 Private MD: Diagnosis: Upper abdominal pain, unspecified Presentation: 05/14 12:26 Chief complaint: Patient states: Upper abdominal pain since last night. 12 ca1 weeks. Vomiting since this morning. Coronavirus screen: Client denies travel out of the [place] in the last 14 days. vomiting. Client presents with at least one sign or symptom that may indicate coronavirus-19. Standard/surgical mask placed on the client. Provider contacted for isolation considerations. Ebola Screen: Patient negative for fever greater than or equal to 101.5 degrees Fahrenheit, and additional compatible Ebola Virus Disease symptoms Patient denies exposure to infectious person. Patient denies travel to an Ebola-affected area in the 21 days before illness onset. No symptoms or risks identified at this time. Initial Sepsis Screen: Does the patient meet any 2 criteria? No. Patient's initial sepsis screen is negative. Does the patient have a suspected source of infection? No. Patient's initial sepsis screen is negative. Risk Assessment: Do you want to hurt yourself or someone else? Patient reports no desire to harm self or others. Onset of symptoms was May 14, 2020. 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 - Social history:: Smoking status: Patient denies any tobacco usage or history of. Screenin:01 Abuse screen: Denies threats or abuse. Denies injuries from another. Nutritional iw screening: No deficits noted. Tuberculosis screening: No symptoms or risk factors identified. Fall Risk IV access (20 points). Assessment: 14:00 General: Appears in no apparent distress. Behavior is calm, cooperative. Pain: iw Complains of pain in right upper quadrant and left upper quadrant. Neuro: Level of Consciousness is awake, alert, obeys commands, Oriented to person, place, time, situation. Cardiovascular: Patient's skin is warm and dry. Respiratory: Respiratory effort is even, unlabored, Respiratory pattern is regular, symmetrical. GI: Bowel sounds present X 4 quads. Abd is soft X 4 quads. Derm: Skin is intact, is healthy with good turgor. Musculoskeletal: Range of motion: intact in all extremities. Vital Signs: 12:26 BP 136 / 90; Pulse 113; Resp 16 S; Temp 97.9(TE); Pulse Ox 100% on R/A; Weight 68.95 kg ca1 (R); Height 5 ft. 0 in. (152.40 cm) (R); Pain 7/10; 12:28 Pulse 107; ca1 14:01 BP 108 / 72; Pulse 105; Resp 16; Pulse Ox 100% on R/A; iw 12:26 Body Mass Index 29.69 (68.95 kg, 152.40 cm) ca1 Vitals: 13:40 Heart Tones 168 bpm. iw ED Course: 11:58 Patient arrived in ED. bg2 12:28 Triage completed. ca1 12:28 Arm band placed on right wrist. ca1 13:17 [facility] Fallon [facility] kb 13:17 Chan Chan MD is Attending Physician. kb 13:35 Mary Ellen Livingston, RN is Primary Nurse. iw 14:03 Initial lab(s) drawn, by me, sent to lab. Inserted saline lock: 22 gauge in right iw antecubital area, using aseptic technique. Blood collected. 14:37 Patient has correct armband on for positive identification. Placed in gown. Bed in low mh5 position. Call light in reach. Side rails up X 1. Warm blanket given. library monitor on. Pulse ox on. NIBP on. 14:37 Urine --Ancillary (enter results) Sent. mh5 14:37 Urine Dipstick--Ancillary (enter results) Sent. 5 14:37 Urine collected: clean catch specimen, cloudy. mh5 15:13 No provider procedures requiring assistance completed. IV discontinued, intact, iw bleeding controlled, No redness/swelling at site. Pressure dressing applied. Administered Medications: 14:10 Drug: Pepcid 20 mg Route: IVP; Site: right antecubital; iw 14:30 Follow up: Response: No adverse reaction iw 14:40 Follow up: Response: No adverse reaction iw 14:10 Drug: NS 0.9% 1000 ml Route: IV; Rate: 1000 ml; Site: right antecubital; iw 15:10 Follow up: IV Status: Completed infusion iw 15:10 Follow up: IV Status: Completed infusion iw Outcome: 14:49 Discharge ordered by MD. arboleda 15:13 Discharged to home ambulatory. iw 15:13 Condition: good 15:13 Discharge instructions given to patient, Instructed on discharge instructions, follow up and referral plans. Demonstrated understanding of instructions, follow-up care. 15:14 Patient left the ED. iw Signatures: Shayy Fallon, FRUIT VENDOR-C FRUIT VENDOR-Ckb Mary Ellen Livingston, RN RN iw Aleida Brothers 2 Ashlee Rebollar [facility] Claudia Hager RN RN ca1
--- NOTE | 2020-05-14 14:50 | EDPHYS ---
Physician Documentation [facility] Name: Qi Thomas Age: 20 yrs Sex: Female : 2000 Arrival Date: 05/14/2020 Time: 11:58 Bed 23 Private MD: ED Physician Chan Chan HPI: 05/14 14:59 This 20 yrs old Female presents to ER via Ambulatory with complaints of kb Abdominal Pain - + 12 wks preg. 14:59 The patient presents with abdominal pain in the epigastric area. Onset: The kb symptoms/episode began/occurred last night. The symptoms do not radiate. Associated signs and symptoms: Pertinent positives: nausea and vomiting, Pertinent negatives: diarrhea, fever, vomiting blood. The symptoms are described as intermittent. Modifying factors: The symptoms are alleviated by nothing, the symptoms are aggravated by nothing. Severity of pain: At its worst the pain was mild moderate in the emergency department the pain has improved. The patient has not experienced similar symptoms in the past. The patient has not recently seen a physician. Pt reports epigastric pain, nausea and vomiting that started last night. States she is 12 weeks so she wanted to make sure the baby was ok. Denies lower abd pain, vaginal bleeding/discharge. . 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 - Social history:: Smoking status: Patient denies any tobacco usage or history of. ROS: 14:58 Constitutional: Negative for fever, chills, and weight loss, Cardiovascular: Negative kb for chest pain, palpitations, and edema, Respiratory: Negative for shortness of breath, cough, wheezing, and pleuritic chest pain, Back: Negative for injury and pain, : Negative for injury, bleeding, discharge, and swelling, MS/Extremity: Negative for injury and deformity, Skin: Negative for injury, rash, and discoloration, Neuro: Negative for headache, weakness, numbness, tingling, and seizure. 14:58 Abdomen/GI: Positive for abdominal pain, nausea and vomiting, Negative for diarrhea, constipation. Exam: 14:59 Constitutional: This is a well developed, well nourished patient who is awake, alert, kb and in no acute distress. Head/Face: Normocephalic, atraumatic. Chest/axilla: Normal chest wall appearance and motion. Cardiovascular: Regular rate and rhythm with a normal S1 and S2. No gallops, murmurs, or rubs. No pulse deficits. Respiratory: Lungs have equal breath sounds bilaterally, clear to auscultation. No rales, rhonchi or wheezes noted. No increased work of breathing, no retractions or nasal flaring. Abdomen/GI: Soft, non-tender, with normal bowel sounds. No distension. No guarding or rebound. No evidence of tenderness throughout. Back: No spinal tenderness. No costovertebral tenderness. Full range of motion. Skin: Warm, dry with normal turgor. Normal color with no rashes, no lesions, and no evidence of cellulitis. MS/ Extremity: Pulses equal, no cyanosis. Neurovascular intact. Full, normal range of motion. Neuro: Awake and alert, GCS 15, oriented to person, place, time, and situation. Cranial nerves II-XII grossly intact. Moves all extremities. Sensory grossly intact. Cerebellar exam normal. Normal gait. Vital Signs: 12:26 BP 136 / 90; Pulse 113; Resp 16 S; Temp 97.9(TE); Pulse Ox 100% on R/A; Weight 68.95 kg ca1 (R); Height 5 ft. 0 in. (152.40 cm) (R); Pain 7/10; 12:28 Pulse 107; ca1 14:01 BP 108 / 72; Pulse 105; Resp 16; Pulse Ox 100% on R/A; iw 12:26 Body Mass Index 29.69 (68.95 kg, 152.40 cm) ca1 MDM: 13:17 Patient medically screened. kb 14:47 Data reviewed: vital signs, nurses notes. Data interpreted: Pulse oximetry: on room air kb is 100 %. Interpretation: normal. Counseling: I had a detailed discussion with the patient and/or guardian regarding: the historical points, exam findings, and any diagnostic results supporting the discharge/admit diagnosis, lab results, radiology results, the need for outpatient follow up, a family practitioner, to return to the emergency department if symptoms worsen or persist or if there are any questions or concerns that arise at home. 15:00 ED course: Pt has follow up with OB tomorrow. kb 05/14 13:27 Order name: Urine Dipstick--Ancillary (enter results) eb 05/14 13:27 Order name: Urine --Ancillary (enter results) eb 05/14 13:31 Order name: Basic Metabolic Panel; Complete Time: 14:47 kb 05/14 13:31 Order name: CBC with Diff; Complete Time: 14:25 kb 05/14 13:31 Order name: Hepatic Function; Complete Time: 14:47 kb 05/14 13:31 Order name: Lipase; Complete Time: 14:47 kb 05/14 13:31 Order name: IV Saline Lock; Complete Time: 14:00 kb 05/14 13:31 Order name: Labs collected and sent; Complete Time: 14:00 kb 05/14 13:31 Order name: US Abdomen Limited kb 05/14 13:52 Order name: Urine --Ancillary; Complete Time: 13:58 EDMS 05/14 13:52 Order name: Urine Dipstick-Ancillary; Complete Time: 13:58 EDMS 05/14 15:03 Order name: US; Complete Time: 15:04 EDMS 05/14 13:31 Order name: FHT's; Complete Time: 13:40 kb Administered Medications: 14:10 Drug: Pepcid 20 mg Route: IVP; Site: right antecubital; iw 14:30 Follow up: Response: No adverse reaction iw 14:40 Follow up: Response: No adverse reaction iw 14:10 Drug: NS 0.9% 1000 ml Route: IV; Rate: 1000 ml; Site: right antecubital; iw 15:10 Follow up: IV Status: Completed infusion iw 15:10 Follow up: IV Status: Completed infusion iw Disposition: 05/14/20 14:49 Discharged to Home. Impression: Upper abdominal pain, unspecified. - Condition is Stable. - Discharge Instructions: Gastroesophageal Reflux Disease, Adult, Abdominal Pain, Adult, [id number]. - Medication Reconciliation Form, Thank You Letter, Antibiotic Education, Prescription Opioid Use form. - Follow up: Emergency Department; When: As needed; Reason: Worsening of condition. Follow up: Private Physician; When: 2 - 3 days; Reason: Recheck today's complaints, Continuance of care, Re-evaluation by your physician. Signatures: Dispatcher [employer] Shayy Pham, MECHANICAL EXPERT-C MECHANICAL EXPERT-Mary Ellen Grijalva RN RN Claudia Morel RN RN ca1 Corrections: (The following items were deleted from the chart) 15:14 14:49 05/14/2020 14:49 Discharged to Home. Impression: Upper abdominal pain, iw unspecified. Condition is Stable. Forms are Medication Reconciliation Form, Thank You Letter, Antibiotic Education, Prescription Opioid Use. Follow up: Emergency Department; When: As needed; Reason: Worsening of condition. Follow up: Private Physician; When: 2 - 3 days; Reason: Recheck today's complaints, Continuance of care, Re-evaluation by your physician. kb
--- NOTE | 2020-05-14 15:01 | RAD REPORT ---
EXAM DESCRIPTION: US - Abdomen Exam Limited - 05/14/2020 2:37 pm CLINICAL HISTORY: ABD PAIN COMPARISON: No comparisons FINDINGS: The gallbladder demonstrates no gallstones. No pericholecystic fluid or gallbladder wall t hickening. The common bile duct is normal measuring 2 mm. The liver demonstrates mild fatty liver. IMPRESSION: Unremarkable examination.
[2020-05-14 17:19] VITALS: TEMP 97.9; O2SAT 100
[2020-05-14 17:21] VITALS: BP 108/72
== END 2020-05-14 15:14 | disposition home or self-care (01) ==
LOC: ER 11:55
DX: O26.891 Other specified pregnancy related conditions, first trimester (principal); Z3A.12 12 weeks gestation of pregnancy
CPT/HCPCS: 96361; 85025; 80048; 36415; 81025; 80076; 81003; 83690; 76705; 96374; 99284; J7030